=== PATIENT | female | born 1990 | race African-American/Black ===

== ENCOUNTER 2021-04-27 16:23 | Emergency (ER) | payer MEDICAID ==
[~2021-04-27] VITALS: Ht 160 cm; Wt 75.0 kg
[~2021-04-27 16:23] MED LIST: D-ME118S13; HYDR-3927; IBUP-2029; MOTRIN OTC; MULT-1021
[2021-04-27 18:20] VITALS: BP 128/84
== END 2021-04-27 18:28 | disposition home or self-care (01) ==
LOC: ER 17:22
DX: S20.212A Contusion of left front wall of thorax, initial encounter (principal); V47.6XXA Car passenger injured in collision with fixed or stationary object in traffic accident, initial encounter; Y93.89 Activity, other specified; Y92.488 Other paved roadways as the place of occurrence of the external cause; R03.0 Elevated blood-pressure reading, without diagnosis of hypertension; F12.90 Cannabis use, unspecified, uncomplicated
CPT/HCPCS: 71101; 99283